=== PATIENT | male | born 1990 | race Caucasian/White ===

== ENCOUNTER 2017-07-08 20:30 | Inpatient (IN) | payer MEDICAID, OTHER ==
[~2017-07-08] VITALS: Ht 170.2 cm; Wt 73.3 kg
[2017-07-08] MEDS ORDERED: SERT50TA12 PO (20:58)
[2017-07-08] MEDS ORDERED: HYD25 PO (20:58)
[2017-07-08 21:13] LABS: BASOPHILS % (AUTO) 0.3 % (0.0-2.0); EOSINOPHILS % (AUTO) 0 % (1.0-6.0); HEMATOCRIT 46.6 % (41-53); HEMOGLOBIN 16.2 g/dL (13.5-17.5); LYMPHOCYTES # (AUTO) 1.1 K/uL (1.0-4.8); LYMPHOCYTES % (AUTO) 14.5 % (22.0-44.0); MEAN CORPUSCULAR HEMOGLOBIN 30.1 pg (26.0-34.0); MEAN CORPUSCULAR HGB CONC 34.8 G/dL (31.0-37.0); MEAN CORPUSCULAR VOLUME 86 fL (80-100); MONOCYTES # (AUTO) 0.4 K/uL (0.1-1.0); MONOCYTES % (AUTO) 4.9 % (2.0-9.0); NEUTROPHILS % (AUTO) 80.3 % (40.0-70.0); PLATELET COUNT (AUTO) 203 K/uL (150-450); RED CELL DISTRIBUTION WIDTH 13.5 % (11.5-14.5)
[2017-07-08 21:37] LABS: ANION GAP 7 mmol/L (8-16); CARBON DIOXIDE 28 mmol/L (22-29); CHLORIDE 104 mmol/L (98-107); CREATININE 0.81 mg/dL (0.60-1.30); GLOMERULAR FILTR. RATE CALC > 60 mL/min (>60); GLUCOSE,RANDOM 96 mg/dL (70-110); POTASSIUM 3.7 mmol/L (3.5-5.1); SODIUM SERUM 139 mmol/L (136-145); UREA NITROGEN, BLOOD 8 mg/dL (7-18)
[2017-07-08 21:42] LABS: ALANINE AMINOTRANSFERASE 43 U/L (12-78); ALBUMIN 4.6 g/dL (3.4-5.0); ALKALINE PHOSPHATASE 111 U/L (46-116); ASPARTATE AMINOTRANSFERASE 23 U/L (15-37); BILIRUBIN,TOTAL 0.7 mg/dL (0.1-1.0); TOTAL PROTEIN, SERUM 8.3 g/dL (6.4-8.2)
[2017-07-08] MEDS ORDERED: LORazepam 2 MG TABLET PO PRN (22:45)
[2017-07-08] MEDS ORDERED: HALOPERIDOL 5 MG TABLET PO PRN (22:45)
[2017-07-09 01:08] VITALS: BP 142/87
[2017-07-09 01:23] LABS: CHOL/HDL RATIO 3.6 (4.2-7.3); CHOLESTEROL 171 mg/dL (131-200); HDL CHOLESTEROL 47 mg/dL (40-60); LDL CHOL (CALC.) 100 mg/dL (0-130); THYROID STIMULATING HORMONE 1.07 uIU/mL (0.36-3.74); TRIGLYCERIDES 119 mg/dL (15-150)
[2017-07-09 09:43] VITALS: BP 135/70
[2017-07-09] MEDS: SERTRALINE HCL 100 MG TABLET PO SCH (16:22)
[2017-07-09 19:00] VITALS: BP 132/86
[2017-07-10 08:05] VITALS: BP 141/92
[2017-07-10] MEDS: SERTRALINE HCL 100 MG TABLET PO SCH (08:14)
[2017-07-10 17:30] VITALS: BP 129/86
[2017-07-11] MEDS: HydrOXYzine PAMOATE 25 MG CAPSULE PO PRN (00:43)
[2017-07-11] MEDS: ZOLPIDEM TARTRATE 10 MG TABLET PO PRN (01:37)
[2017-07-11] MEDS: SERTRALINE HCL 100 MG TABLET PO SCH (08:58)
[2017-07-11 17:14] VITALS: BP 135/80
[2017-07-12] MEDS: ZOLPIDEM TARTRATE 10 MG TABLET PO PRN (01:50)
[2017-07-12 09:09] VITALS: BP 136/87
[2017-07-12] MEDS: HydrOXYzine PAMOATE 25 MG CAPSULE PO PRN (09:12)
[2017-07-12] MEDS: SERTRALINE HCL 100 MG TABLET PO SCH (09:12)
[2017-07-12] MEDS ORDERED: SERT100T12 PO (11:02)
== END 2017-07-12 14:20 | disposition home or self-care (01) | DRG 751 ==
LOC: EMS 20:33 → 3EI 07-09 00:05
PROVIDERS: ADMIT Psychiatry & Neurology Psychiatry; ATTEND Psychiatry & Neurology Psychiatry
DX: F33.2 Major depressive disorder, recurrent severe without psychotic features (principal); R45.851 Suicidal ideations; F42.9 Obsessive-compulsive disorder, unspecified; F43.10 Post-traumatic stress disorder, unspecified; F41.9 Anxiety disorder, unspecified; Z79.899 Other long term (current) drug therapy; Z81.8 Family history of other mental and behavioral disorders
CPT/HCPCS: 84443; 99285; G0480

== ENCOUNTER 2022-12-05 16:37 | Inpatient (IN) | payer MEDICAID, OTHER ==
[~2022-12-05] VITALS: Ht 170.2 cm; Wt 78.9 kg
[~2022-12-05 16:37] MED LIST: SERT-162 PO
[2022-12-05 17:34] LABS: BASOPHILS % (AUTO) 0.2 % (0.0-2.0); EOSINOPHILS % (AUTO) 0.1 % (1.0-6.0); HEMATOCRIT 51.2 % (41-53); HEMOGLOBIN 16.9 g/dL (13.5-17.5); LYMPHOCYTES # (AUTO) 0.8 K/uL (1.0-4.8); LYMPHOCYTES % (AUTO) 11.4 % (22.0-44.0); MEAN CORPUSCULAR HEMOGLOBIN 30.1 pg (26.0-34.0); MEAN CORPUSCULAR HGB CONC 32.9 G/dL (31.0-37.0); MEAN CORPUSCULAR VOLUME 91 fL (80-100); MONOCYTES # (AUTO) 0.5 K/uL (0.1-1.0); MONOCYTES % (AUTO) 6.8 % (2.0-9.0); NEUTROPHILS # (AUTO) 5.6 K/uL (1.8-7.7); NEUTROPHILS % (AUTO) 81.5 % (40.0-70.0); PLATELET COUNT (AUTO) 190 K/uL (150-450); RED CELL DISTRIBUTION WIDTH 13.4 % (11.5-14.5)
[2022-12-05 17:42] LABS: ANION GAP 15 mmol/L (8-16); CALCIUM, TOTAL 9.3 mg/dL (8.8-10.5); CARBON DIOXIDE 27 mmol/L (22-29); CHLORIDE 102 mmol/L (98-107); CREATININE 1.01 mg/dL (0.60-1.30); GLOMERULAR FILTR. RATE CALC > 60 mL/min (>60); GLUCOSE,RANDOM 110 mg/dL (70-110); POTASSIUM 4.2 mmol/L (3.5-5.1); SODIUM SERUM 144 mmol/L (136-145)
[2022-12-05 17:48] LABS: ALANINE AMINOTRANSFERASE 46 U/L (12-78); ALBUMIN 4.6 g/dL (3.4-5.0); ALKALINE PHOSPHATASE 87 U/L (46-116); ASPARTATE AMINOTRANSFERASE 26 U/L (15-37); BILIRUBIN,TOTAL 0.9 mg/dL (0.1-1.0)
[2022-12-05] MEDS ORDERED: LORazepam 2 MG TABLET PO PRN (19:15)
[2022-12-05] MEDS ORDERED: HALOPERIDOL 5 MG TABLET PO PRN (19:15)
[2022-12-05] MEDS: ZOLPIDEM TARTRATE 10 MG TABLET PO PRN (19:33)
[2022-12-05 19:39] LABS: COVID AG,FIA SOURCE NASOPHARYNGEAL
[2022-12-05 19:56] LABS: AMPHET/METH SCREEN,URINE NEGATIVE (NEGATIVE); BARBITURATE SCREEN, URINE NEGATIVE (NEGATIVE); BENZODIAZEPINES SCREEN,URINE NEGATIVE (NEGATIVE); CANNABINOID SCREEN,URINE NEGATIVE (NEGATIVE); COCAINE SCREEN,URINE NEGATIVE (NEGATIVE); METHADONE SCREEN, URINE NEGATIVE (NEGATIVE); OPIATE SCREEN,URINE NEGATIVE (NEGATIVE); PHENCYCLIDINE SCREEN,URINE NEGATIVE (NEGATIVE)
[2022-12-05] MEDS ORDERED: DOCUSATE SODIUM 100 MG CAPSULE PO PRN (23:45)
[2022-12-05] MEDS ORDERED: ACETAMINOPHEN 325 MG TABLET PO PRN (23:45)
[2022-12-05] MEDS ORDERED: ALBUTEROL SULFATE HFA 90 MCG/PUFF 8 GM INHALER IH PRN (23:45)
[2022-12-05] MEDS ORDERED: MAG HYDROX/AL HYDROX/SIMETH ES 30 ML SUSPENSION UDCUP PO PRN (23:45)
[2022-12-05] MEDS ORDERED: MAGNESIUM HYDROXIDE SUSPENSION 30 ML UDCUP PO PRN (23:45)
[2022-12-05] MEDS ORDERED: PETROLATUM,WHITE 28 GM JELLY TP PRN (23:45)
[2022-12-05] MEDS ORDERED: BENZOCAINE/MENTHOL LOZENGE PO PRN (23:45)
[2022-12-05] MEDS ORDERED: ONDANSETRON HCL 4 MG TABLET PO PRN (23:45)
[2022-12-05] MEDS ORDERED: OMEPRAZOLE 20 MG CAPSULE PO PRN (23:45)
[2022-12-05] MEDS ORDERED: BACITRACIN 28 GM OINTMENT TP PRN (23:45)
[2022-12-05] MEDS ORDERED: IBUPROFEN 600 MG TABLET PO PRN (23:45)
[2022-12-05] MEDS ORDERED: LOPERAMIDE HCL 2 MG CAPSULE PO PRN (23:45)
[2022-12-05] MEDS ORDERED: CloNIDine HCL 0.1 MG TABLET PO PRN (23:45)
[2022-12-06 00:18] VITALS: BP 128/80; PULSE 85; RESP 18; TEMP 98.6
[2022-12-06] MEDS ORDERED: *NON-FORMULARY MED [ENTER DRUG, DOSE, FREQ IN COMMENTS] CLINICAL ONE (07:30)
[2022-12-06 08:58] VITALS: BP 108/60; PULSE 82; RESP 18; TEMP 98; O2SAT 97
[2022-12-06 13:51] VITALS: BP 126/76; PULSE 80; RESP 17; TEMP 98.2
[2022-12-06] MEDS ORDERED: CLOMIPHENE CITRATE PO SCH (21:00)
[2022-12-06 21:08] VITALS: BP 119/76; PULSE 68; RESP 18; TEMP 98.3; O2SAT 97
[2022-12-07] MEDS: ZOLPIDEM TARTRATE 10 MG TABLET PO PRN (01:07)
[2022-12-07] MEDS ORDERED: SERTRALINE HCL 50 MG TABLET PO SCH (09:00)
[2022-12-07 09:11] VITALS: BP 124/83; PULSE 83; RESP 17; TEMP 97.8; O2SAT 97
[2022-12-07] MEDS ORDERED: SERT-158 PO (11:17)
[2022-12-07] MEDS ORDERED: CLOMIPHENE CITRATE PO SCH (21:00)
== END 2022-12-07 13:30 | disposition home or self-care (01) | DRG 751 ==
LOC: EMS 16:42 → B2S 19:54
PROVIDERS: ADMIT Psychiatry & Neurology Psychiatry; ATTEND Psychiatry & Neurology Psychiatry
DX: F33.2 Major depressive disorder, recurrent severe without psychotic features (principal); R45.851 Suicidal ideations; F42.9 Obsessive-compulsive disorder, unspecified; F43.10 Post-traumatic stress disorder, unspecified; F41.9 Anxiety disorder, unspecified; G47.00 Insomnia, unspecified; Z20.822 Contact with and (suspected) exposure to COVID-19; K59.00 Constipation, unspecified; Z79.899 Other long term (current) drug therapy
CPT/HCPCS: 80053; 80307; 85025; 99285; G0480; Q9967